=== PATIENT | female | born 1970 | race Caucasian/White ===

== ENCOUNTER → 2016-10-06 | Outpatient (CLI) | payer BC ==
[~2016-10-06] MED LIST: ABSORICA20 MG PO; ALEVE220 M1 PO; B-121000 MC1 PO; CILOXAN3.5 GM OD; ESTER-C500 M1 PO; FISH OIL 1,001000 MG PO; IBUPROFEN400 MG PO; IMITREX50 MG PO; LAMICTAL100 MG PO; LEXAPRO PO; LIPITOR PO; MELATONIN3 M4 PO; PHENTERMINE H37.5 M1 PO; SEROQUEL PO; SEROQUEL50 MG PO; STOOL SOFTENER100 M1 PO; TOPAMAX50 MG DOB; VIIBRYD40 MG PO; VITAMIN C500 MG PO; VITAMIN D1000 UNIT PO; XANAX XR0.5 MG PO; XANAX0.5 MG PO; ZYRTEC10 M2 PO
--- NOTE | ~2016-10-06 | CT3 ---
[facility] A Service of [facility] RADIOLOGY TEXT RESULTS PATIENT: CARLOS MADRIGAL LOCATION: [facility]AT : 70 UNIT #: [id number] AGE: [address]: TINO HENDRIX MD SEX: F ORDER DR: [id number] [facility] [address] [facility]. [place], [place] [address] [id number] O MR#: [id number] Acc #: [id number] NAME: CARLOS MADRIGAL : 1970 SEX: F STUDY DATE/TIME: 10/06/2016 9:50 UNIT: [facility] ROOM: STUDY DESCRIPTION: CT Abd and Pelv WWo Cont Attending Physician: Tino Hendrix M.D. Referring Physician: Tino Hendrix M.D. Primary Care Physician: Renzo Fong M.D. MEDICAL IMAGING REPORT This report is preliminary unless electronic signature is present EXAM CT abdomen and pelvis without and with contrast INDICATIONS Bloody stools and hematuria for the past [address] of the abdomen and pelvis. Postcontrast CT of the abdomen and pelvis with multiphase acquisition through the kidneys. This CT exam was performed with one or more of the following radiation dose reduction techniques: automatic exposure control, adjustment of mA and/or kV according to patient size, and iterative reconstruction. COMPARISON None FINDINGS Abdomen without contrast: Included lung bases are clear. Hepatic steatosis. No radiodense urinary system calculus or hydronephrosis. Pelvis without contrast: No radiodense bladder calculus. Abdomen with contrast: Kidneys enhance symmetrically. No enhancing renal mass. Symmetric excretion of contrast. Abnormal filling defect in the collecting systems or ureters. The liver, spleen, adrenal glands, pancreas and gallbladder are unremarkable. Bowel loops are nondilated. [facility] A Service of [facility] RADIOLOGY TEXT RESULTS PATIENT: CARLOS MADRIGAL LOCATION: CCAT : 70 UNIT #: [id number] AGE: [address]: TINO HENDRIX MD SEX: F ORDER DR: Pelvis with contrast: Previous hysterectomy. No pelvic mass or fluid. No bladder mass. No aggressive appearing bone lesion. IMPRESSION 1. No clearly acute finding in the abdomen or pelvis. No finding to explain the patient's hematuria. 2. Hepatic steatosis. Dictated by... Ben Goodman M.D. THIS IS AN ELECTRONICALLY VERIFIED REPORT Ben Goodman M.D. at 10/09/2016 8:50 AM EED/to TD: 10/06/2016 16:17 JOB #: [id number] MEDICAL IMAGING REPORT Page 1 of 1 COPY
== END | disposition home or self-care (01) ==
LOC: CCAT 08:52
DX: R31.0 Gross hematuria (principal); K76.0 Fatty (change of) liver, not elsewhere classified
CPT/HCPCS: 74178; Q9967